=== PATIENT | male | born 1955 | race Caucasian/White ===

== ENCOUNTER → 2019-01-29 11:56 | Outpatient (CLI) | payer BC ==
[2010-03-28 11:09] VITALS: BMI 27.1
== END | disposition home or self-care (01) ==
LOC: D.US 11:56
PROVIDERS: ATTEND Internal Medicine Cardiovascular Disease
DX: I70.213 Atherosclerosis of native arteries of extremities with intermittent claudication, bilateral legs (principal)

== ENCOUNTER → 2019-02-09 08:29 | Outpatient (CLI) | payer BC ==
[2010-03-28 11:09] VITALS: BMI 27.1
== END | disposition home or self-care (01) ==
LOC: D.MRI 08:29
PROVIDERS: ATTEND Internal Medicine Cardiovascular Disease
DX: I70.212 Atherosclerosis of native arteries of extremities with intermittent claudication, left leg (principal)